=== PATIENT | male | born 1950 | race Two or more races ===

== ENCOUNTER 2020-10-06 07:17 | Outpatient (CLI) | payer OTHER | END 2020-10-06 07:21 | disposition home or self-care (01) | LOC: NUCLEAR 07:17 | DX: M25.561 Pain in right knee (principal); M25.562 Pain in left knee; M79.605 Pain in left leg; M79.604 Pain in right leg ==

== ENCOUNTER → 2020-10-06 | Outpatient (CLI) | payer OTHER | END | disposition home or self-care (01) | LOC: RAD 08:05 | DX: M25.561 Pain in right knee (principal); M79.604 Pain in right leg ==

== ENCOUNTER 2020-10-07 09:31 | Outpatient (CLI) | payer OTHER | END 2020-10-07 09:40 | disposition home or self-care (01) | LOC: NUCLEAR 09:31 | DX: M25.561 Pain in right knee (principal); M25.562 Pain in left knee; M79.604 Pain in right leg; M79.605 Pain in left leg ==

== ENCOUNTER 2021-10-04 07:47 | Outpatient (CLI) | payer OTHER | END 2021-10-04 07:48 | disposition home or self-care (01) | LOC: NUCLEAR 07:47 | PROVIDERS: ATTEND Internal Medicine | DX: I65.23 Occlusion and stenosis of bilateral carotid arteries (principal) ==

== ENCOUNTER 2023-07-19 07:10 | Outpatient (CLI) | payer OTHER | END 2023-07-19 07:20 | disposition home or self-care (01) | LOC: TOM 07:10 | PROVIDERS: ATTEND Internal Medicine | DX: L02.211 Cutaneous abscess of abdominal wall (principal); R10.32 Left lower quadrant pain ==

== ENCOUNTER 2023-07-30 08:22 | Outpatient (CLI) | payer OTHER | END 2023-07-30 08:25 | disposition home or self-care (01) | LOC: RAD 08:22 | DX: Z01.818 Encounter for other preprocedural examination (principal) ==